=== PATIENT | female | born 1950 | race Caucasian/White ===

== ENCOUNTER → 2017-03-04 | Outpatient (CLI) | payer OTHER ==
[~2017-03-04] MED LIST: ADVAIR HFA120 INHALA IH; ADVIL200 MG PO; ALBUTEROL SULF8.5 GM IH; AMARYL2 MG PO; AMLODIPINE BESYL5 MG PO; ASPIR 8181 M1 PO; ASPIRIN81 M2 PO; CARDIZEM CD240 MG PO; CELEXA10 MG PO; COZAAR25 MG PO; COZAAR50 MG PO; CYMBALTA30 MG PO; Cardizem CD,Cartia X PO; Cozaar PO; DESYREL100 MG PO; DILTIAZEM 24HR120 MG PO; DILTIAZEM 24HR240 MG PO; Desyrel PO; Ecotrin PO; GLIPIZIDE ER2.5 M1 PO; Glucotrol PO; LEVAQUIN500 MG PO; LEVOFLOXACIN500 MG PO; METAMUCIL PACKE1 PKT PO; NEXIUM20 MG PO; NICOTINE PATCH1 EAC2 TD; NITROSTAT0.4 MG SL; NORVASC2.5 MG PO; NORVASC5 MG PO; Norvasc PO; OXYCONTIN10 MG PO; PERCOCET 10-651 EACH PO; PERCOCET 10/1 TABLET PO; PERCOCET 5/31 TABLET PO; PERCOCET PO; PREDNISONE10 MG PO; PREDNISONE20 MG PO; PREDNISONE5 MG PO; PROAIR HFA8.5 GM IH; PROVENTIL,2.5 MG/0.5 IH; Percocet 5/325,Endoc PO; SIMVASTATIN20 MG PO; SPIRIVA1 INHALATI IH; TRAMADOL HCL50 MG PO; Zocor PO
== END | disposition home or self-care (01) ==
LOC: AMB 12:36
PROC: 0HB7XZZ Excision of Abdomen Skin, External Approach (ICD-10-PCS; principal; 2017-03-04)
DX: L02.211 Cutaneous abscess of abdominal wall (principal); L83 Acanthosis nigricans
CPT/HCPCS: 88304

== ENCOUNTER 2017-06-29 10:33 | Emergency (ER) | payer OTHER ==
[~2017-06-29] VITALS: Ht 170.2 cm; Wt 78.6 kg
[2017-06-29 11:38] LABS: MCH 31.1 PG (29.0-34.0); MCHC 33.4 G/DL (30.0-36.0); MEAN PLAT.VOLUME 8.8 uM^3 (9.5-12.4); PLATELET COUNT 263 K/uL (156-360); RBC DIS.WIDTH-CV 13.5 % (11.8-14.6); RBC DIS.WIDTH-SD 46.1 % (39-53); RED BLOOD COUNT 4.41 M/uL (3.80-5.20); WHITE BLOOD COUNT 11.4 K/uL (4.1-10.2)
[2017-06-29 11:47] LABS: CHLORIDE 103 mEq/L (99-109); POTASSIUM 3.5 mEq/L (3.7-5.4); SODIUM 141 mEq/L (136-147)
[2017-06-29 11:49] LABS: GLUCOSE 91 mg/dL (70-99)
[2017-06-29 11:50] LABS: ANION GAP 9 MEQ/L (2-14)
[2017-06-29 11:53] LABS: GFR ESTIMATE (CALCULATED) 59 mL/min/; UREA NITROGEN (BUN) 17 mg/dL (9-23)
[2017-06-29 13:55] LABS: TROP-I INTERPRETATION NEGATIVE; TROPONIN-I 0.01 ng/mL (0.0-0.30)
[2017-06-29 15:07] VITALS: BP 131/71
== END 2017-06-29 15:40 | disposition home or self-care (01) ==
LOC: EME 10:33
DX: R55 Syncope and collapse (principal); S80.211A Abrasion, right knee, initial encounter; M25.572 Pain in left ankle and joints of left foot; W18.30XA Fall on same level, unspecified, initial encounter; I25.2 Old myocardial infarction; J44.9 Chronic obstructive pulmonary disease, unspecified; E11.9 Type 2 diabetes mellitus without complications; I10 Essential (primary) hypertension; E78.5 Hyperlipidemia, unspecified; Z79.82 Long term (current) use of aspirin; F32.9 Major depressive disorder, single episode, unspecified; K21.9 Gastro-esophageal reflux disease without esophagitis; F17.200 Nicotine dependence, unspecified, uncomplicated; M79.7 Fibromyalgia; Z86.73 Personal history of transient ischemic attack (TIA), and cerebral infarction without residual deficits; Z87.442 Personal history of urinary calculi
CPT/HCPCS: 70450; 71020; 73564; 73610; 80048; 84484; 85027; 93005; 99281; 99284